=== PATIENT | female | born 2000 | race Hispanic/Latino ===

== ENCOUNTER 2020-04-25 22:33 | Observation (INO) | payer BC ==
[~2020-04-25] VITALS: Ht 172.7 cm; Wt 104.8 kg
[2020-04-25] MEDS ORDERED: LACTATED RINGERS 1000ML IV PRN (22:45)
[2020-04-25 23:09] LABS: APPEARANCE,URINE Clear (CLEAR); BILIRUBIN,URINE Negative (NEGATIVE); COLOR,URINE Yellow (YELLOW); GLUCOSE, URINE (UA) Negative (NEGATIVE); KETONES,URINE Negative (NEGATIVE); LEUKOCYTE ESTERASE ,URINE Negative (NEGATIVE); NITRATE,URINE Negative (NEGATIVE); OCCULT BLOOD,URINE Negative (NEGATIVE); PH,URINE 7.5 (5.0-8.0); PROTEIN,URINE Negative (NEGATIVE); UROBILINOGEN,URINE 0.2 mg/dL (0.2-1.0)
[2020-04-25 23:15] LABS: AMPHET/METH SCREEN,URINE NEGATIVE (NEGATIVE); BARBITURATE SCREEN, URINE NEGATIVE (NEGATIVE); BENZODIAZEPINES SCREEN,URINE NEGATIVE (NEGATIVE); CANNABINOID SCREEN,URINE NEGATIVE (NEGATIVE); COCAINE SCREEN,URINE NEGATIVE (NEGATIVE); OPIATE SCREEN,URINE NEGATIVE (NEGATIVE); PHENCYCLIDINE SCREEN,URINE NEGATIVE (NEGATIVE)
[2020-04-25 23:24] VITALS: BP 129/82
[2020-04-25] MEDS ORDERED: PREN1TAB80 PO (23:38)
== END 2020-04-26 | disposition home or self-care (01) ==
LOC: EDH 22:33 → LDH 22:34
DX: O36.8130 Decreased fetal movements, third trimester, not applicable or unspecified (principal); R10.30 Lower abdominal pain, unspecified; Z3A.30 30 weeks gestation of pregnancy
CPT/HCPCS: 80305; 81003; 99284; G0378

== ENCOUNTER 2020-06-30 01:34 | Inpatient (IN) | payer BC ==
[~2020-06-30] VITALS: Ht 172.7 cm; Wt 106.1 kg
[~2020-06-30 01:34] MED LIST: PREN1TAB80 PO
[2020-06-30 02:31] LABS: APPEARANCE,URINE Clear (CLEAR); BILIRUBIN,URINE Negative (NEGATIVE); COLOR,URINE Yellow (YELLOW); GLUCOSE, URINE (UA) Negative (NEGATIVE); KETONES,URINE 15 mg/dL (NEGATIVE); LEUKOCYTE ESTERASE ,URINE Trace (NEGATIVE); NITRATE,URINE Negative (NEGATIVE); OCCULT BLOOD,URINE Small (NEGATIVE); PROTEIN,URINE Negative (NEGATIVE)
[2020-06-30 02:46] LABS: AMPHET/METH SCREEN,URINE NEGATIVE (NEGATIVE); BARBITURATE SCREEN, URINE NEGATIVE (NEGATIVE); BENZODIAZEPINES SCREEN,URINE NEGATIVE (NEGATIVE); CANNABINOID SCREEN,URINE NEGATIVE (NEGATIVE); COCAINE SCREEN,URINE NEGATIVE (NEGATIVE); OPIATE SCREEN,URINE NEGATIVE (NEGATIVE); PHENCYCLIDINE SCREEN,URINE NEGATIVE (NEGATIVE)
[2020-06-30 02:48] VITALS: BP 129/73
[2020-06-30 03:00] LABS: BACTERIA,URINE Few /HPF (None Seen); MUCUS,URINE Moderate LPF (None Seen); SQUAMOUS EPITHELIAL CELL,UR Moderate /HPF (0-2)
[2020-06-30] MEDS ORDERED: PREN-196 PO (03:03)
[2020-06-30] MEDS ORDERED: LACTATED RINGERS 1000ML 1,000 ML IV PRN (03:05)
[2020-06-30] MEDS ORDERED: ACETAMINOPHEN EXTRA STRENGTH 500 MG TABLET ONE (03:09)
[2020-06-30] MEDS ORDERED: LACTATED RINGERS 500 ML 500 ML IV PRN (03:15)
[2020-06-30] MEDS ORDERED: ACETAMINOPHEN EXTRA STRENGTH 500 MG TABLET PO PRN (03:15)
[2020-06-30] MEDS ORDERED: ROPIVACAINE 0.2% 100ML VIAL 100 ML EP PRN (03:15)
[2020-06-30] MEDS ORDERED: LACTATED RINGERS 1000ML IV PRN (03:15)
[2020-06-30] MEDS ORDERED: EPHEDRINE SULFATE 50 MG/ML AMPULE IVP PRN (03:15)
[2020-06-30] MEDS ORDERED: NALOXONE HCL 0.4 MG/1 ML ML IV PRN (03:15)
[2020-06-30] MEDS ORDERED: BUTORPHANOL TARTRATE 2 MG/ML IVP PRN (03:15)
[2020-06-30] MEDS ORDERED: BUTORPHANOL TARTRATE 2 MG/ML ONE (03:18)
[2020-06-30 03:36] LABS: HEMATOCRIT 30.6 % (36-48); MEAN CORPUSCULAR HEMOGLOBIN 23.6 pg (27.0-33.0); MEAN CORPUSCULAR VOLUME 75.9 fL (80-100); PLATELET COUNT (AUTO) 84 K/uL (130-400); RED BLOOD CELL COUNT(AUTO) 4.03 MIL/uL (4.00-5.50); RED CELL DISTRIBUTION WIDTH 15.1 % (11.0-15.5); WHITE BLOOD COUNT (AUTO) 9.2 K/uL (4.8-10.8)
[2020-06-30] MEDS ORDERED: OXYTOCIN-LR 20 UNITS/1000 ML 1,000 ML IV ONE ×2 (04:39→16:07)
[2020-06-30] MEDS ORDERED: OXYTOCIN 10 USP UNITS/ML 20 UNIT in LACTATED RINGERS 1000ML 1,000 ML IV SCH (08:15)
[2020-06-30] MEDS ORDERED: MEPERIDINE-PF 50 MG/ML SYG ONE (09:11)
[2020-06-30] MEDS ORDERED: LIDOCAINE HCL 1% 20 ML VIAL ONE (09:12)
[2020-06-30] MEDS ORDERED: PROMETHAZINE HCL 25 MG/ML 1ML AMPULE IM PRN (09:15)
[2020-06-30] MEDS ORDERED: MEPERIDINE-PF 50 MG/ML SYG IVP PRN (09:15)
[2020-06-30 09:32] LABS: BASOPHILS % (AUTO) 0.2 % (0.0-5.0); EOSINOPHILS % (AUTO) 0.1 % (0.0-8.0); HEMATOCRIT 28.6 % (36-48); LYMPHOCYTES % (AUTO) 8.8 % (21.0-51.0); MEAN CORPUSCULAR HEMOGLOBIN 23.9 pg (27.0-33.0); MEAN CORPUSCULAR HGB CONC 31.1 g/dL (32.0-36.0); MEAN CORPUSCULAR VOLUME 76.7 fL (80-100); MONOCYTES % (AUTO) 8.1 % (3.0-13.0); NEUTROPHILS % (AUTO) 82.2 % (40.0-77.0); PLATELET COUNT (AUTO) 216 K/uL (130-400); RED BLOOD CELL COUNT(AUTO) 3.73 MIL/uL (4.00-5.50); RED CELL DISTRIBUTION WIDTH 15.1 % (11.0-15.5); WHITE BLOOD COUNT (AUTO) 10.1 K/uL (4.8-10.8)
[2020-06-30 09:41] LABS: INR 0.86 (0.85-1.15); PARTIAL THROMBOPLASTIN TIME 25.1 SEC (26.3-35.5); PROTHROMBIN TIME 9.3 SEC (9.6-11.6)
[2020-06-30 09:45] LABS: ALBUMIN 2.5 g/dL (3.5-5.0); BILIRUBIN,TOTAL 0.4 mg/dL (0.2-1.0); CREATININE 0.6 mg/dL (0.5-1.5); POTASSIUM 3.8 mmol/L (3.5-5.1); TOTAL PROTEIN, SERUM 6.6 g/dL (6.0-8.3); URIC ACID 4.8 mg/dL (2.6-7.2)
[2020-06-30 14:09] LABS: RAPID PLASMA REAGIN NONREACTIVE (NONREACTIVE)
--- NOTE | 2020-06-30 14:45 | NUR ---
SS Referral for Hx of depression and COVID+ SW unable to meet w/pt. face to face, interview by telephone while pt. is in L&D. Pt. reports that she is single, resides at home with her parents and that this is her first . 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 Pt. 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 Pt. denies any signs/symptoms of depression, any thoughts of harm to self or others. Pt. admits to self-cutting as a 12y, denies any intervention from mental health community and reports that she stopped cutting on her own. Pt. denies any history of suicidal attempts, denies any history of anxiety. Pt. denies any use of etoh, tobacco or illicit substances. Pt. reports a strong support system among boyfriend, her parents and boyfriend parents. Pt. reports that she is aware that baby will be tested for COVID and if baby is negative, she is considering boyfriend's mother/Susan Tiffanieperez for care of . Carseat, baby clothes, diapers, etc reportedly in place. All utilities reportedly connected in the home and boyfriend will provide transportation home. Pt. has private insurance under parent and plans to enroll in WIC. SW discussed PPD with pt. who verbalized an awareness and understanding of how and when to seek assistance if needed. Pt. voiced no concerns or SS needs at this time. Addendum: 06/30/20 at 1518 by PORTILLO HART Amended: Links added.
[2020-06-30] MEDS ORDERED: METHYLERGONOVINE MALEATE 0.2 MG/1 ML ML ONE (16:08)
[2020-06-30] MEDS ORDERED: ACETAMINOPHEN-CODEINE 300/30MG TAB PO PRN (17:15)
[2020-06-30] MEDS ORDERED: OXYTOCIN-LR 20 UNITS/1000 ML 1,000 ML IV SCH (17:15)
[2020-06-30] MEDS ORDERED: WITCH HAZEL 1 PAD TP PRN (17:15)
[2020-06-30] MEDS ORDERED: DIPH,PERTUSS(ACELL),TET VAC/PF 0.5 ML VIAL IM PRN (17:15)
[2020-06-30] MEDS ORDERED: IBUPROFEN 600 MG TABLET PO PRN (17:15)
[2020-06-30] MEDS ORDERED: BENZOCAINE/LANOLIN/ALOE VERA 60 ML AEROSOL TP PRN (17:15)
[2020-06-30] MEDS ORDERED: MEASLES/MUMPS/RUBELLA VACCINE, LIVE 0.5 ML/VIAL SQ PRN (17:15)
[2020-06-30] MEDS ORDERED: ACETAMINOPHEN 325 MG TAB PO PRN (17:15)
[2020-06-30] MEDS ORDERED: AZITHROMYCIN 250 MG TABLET PO SCH (17:15)
[2020-06-30] MEDS ORDERED: LANOLIN 30GM OINTMENT TP PRN (17:15)
[2020-06-30] MEDS ORDERED: IBUPROFEN 600 MG TABLET ONE (17:19)
[2020-06-30] MEDS ORDERED: AZITHROMYCIN 250 MG TABLET PO ONE (17:19)
[2020-06-30 19:40] VITALS: BP 109/72
[2020-06-30] MEDS: DOCUSATE SODIUM 100 MG CAP PO SCH (19:51)
[2020-06-30 23:37] VITALS: BP 116/72
[2020-07-01 03:12] VITALS: BP 127/76
--- NOTE | 2020-07-01 05:40 | NUR ---
NOT ABLE TO DRAW PT'S LAB FOR CBC,LAB. NOTIFIED. SITZ BATH EXPLAINED TO PT, WHO GOT OUT OF BED TO DO HER SITZ RIGHT NOW. INST ON THE USE OF DERMO LANOLIN GIVEN SINCE PT SAID ANDRES AND LISSA, PT VERBALIZED UNDERSTANDING. LANOLIN GIVEN PT SAID SHE PLANS ON , NURSERY NOTIFIED.
[2020-07-01 06:08] LABS: HEMATOCRIT 27.9 % (36-48); MEAN CORPUSCULAR HEMOGLOBIN 23.6 pg (27.0-33.0); MEAN CORPUSCULAR HGB CONC 30.5 g/dL (32.0-36.0); MEAN CORPUSCULAR VOLUME 77.5 fL (80-100); RED BLOOD CELL COUNT(AUTO) 3.6 MIL/uL (4.00-5.50); RED CELL DISTRIBUTION WIDTH 15.4 % (11.0-15.5); WHITE BLOOD COUNT (AUTO) 9.9 K/uL (4.8-10.8)
[2020-07-01 06:11] LABS: HEPATITIS Bs ANTIGEN SCREEN P Negative (Negative)
[2020-07-01 08:30] VITALS: BP 123/82
[2020-07-01] MEDS: DOCUSATE SODIUM 100 MG CAP PO SCH (08:30)
[2020-07-01] MEDS ORDERED: AZITHROMYCIN 250 MG TABLET PO SCH (09:00)
--- NOTE | 2020-07-01 10:50 | NUR ---
pt is discharged, verbal and written discharge instructions given, pls refer to [facility]. informed to call the MD office for follow up appointment. prescription given. informed to call the doctor for further concerns. pt voiced understanding to all things discussed. Addendum: 07/01/20 at 1224 by NAVEEN MISTRY RN Amended: Links added.
--- NOTE | 2020-07-01 11:10 | NUR ---
pt is dismissed in stable condition. brought to private car via wheelchair.
--- NOTE | 2020-07-01 12:08 | NUR ---
cm note spoke to pt and resides at home with parents and with boyfriend, this is her first baby, has had hx of depression as a child, but has not had any signs or symptoms of depression since then, has had a hx of THC use in the past, but it was prior to her and does not use any thc or any drugs and does not plan to use any. is familiar with resources available for depression, and educated her to call md if at any point these signs recur. pt verbalizes understanding. that has good strong family support at home with Her boyfriend, and her parents. no dc needs. updated nursery nurse nurse antonia.
== END 2020-07-01 11:10 | disposition home or self-care (01) | DRG 805 ==
LOC: EDH 01:34 → OBSVTOIN 01:35 → LDH 01:35 → WSH 18:52
PROVIDERS: ADMIT Specialist; ATTEND Specialist
PROC: 10E0XZZ Delivery of Products of Conception, External Approach (ICD-10-PCS; principal; 2020-06-30)
PROC: 0W8NXZZ Division of Female Perineum, External Approach (ICD-10-PCS; 2020-06-30)
PROC: 10907ZC Drainage of Amniotic Fluid, Therapeutic from Products of Conception, Via Natural or Artificial Opening (ICD-10-PCS; 2020-06-30)
PROC: 3E0234Z Introduction of Serum, Toxoid and Vaccine into Muscle, Percutaneous Approach (ICD-10-PCS; 2020-06-30)
PROC: 3E0134Z Introduction of Serum, Toxoid and Vaccine into Subcutaneous Tissue, Percutaneous Approach (ICD-10-PCS; 2020-06-30)
PROC: 3E0R3BZ Introduction of Anesthetic Agent into Spinal Canal, Percutaneous Approach (ICD-10-PCS; 2020-06-30)
PROC: 00HU33Z Insertion of Infusion Device into Spinal Canal, Percutaneous Approach (ICD-10-PCS; 2020-06-30)
DX: O98.52 Other viral diseases complicating childbirth (principal); U07.1 COVID-19; Z37.0 Single live birth; Z23 Encounter for immunization; Z3A.39 39 weeks gestation of pregnancy
CPT/HCPCS: 36415; 80053; 80305; 81001; 84550; 85025; 85027; 85384; 85610; 85730; 86592; 86701; 86850; 86900; 86901; 87340; 87390; 87426; 90715; A4314; A4606; G0378; J0595; J2175; J2210; J2590; J2795; J7120

== ENCOUNTER → 2020-07-02 | Outpatient (CLI) | payer BC ==
[~2020-07-02] MED LIST changes: +PREN-196 PO
== END | disposition home or self-care (01) ==
LOC: LAB 13:44
PROVIDERS: ATTEND Specialist
DX: U07.1 COVID-19 (principal)
CPT/HCPCS: C9803; U0003

== ENCOUNTER 2021-11-21 01:25 | Emergency (ER) | payer BC, MEDICAID ==
[~2021-11-21] VITALS: Ht 172.7 cm; Wt 88.5 kg
[2021-11-21] MEDS ORDERED: ACETAMINOPHEN 500 MG TABLET PO ONE (05:30)
[2021-11-21 05:35] VITALS: BP 128/74
== END 2021-11-21 05:39 | disposition home or self-care (01) ==
LOC: EDH 01:25
DX: S46.912A Strain of unspecified muscle, fascia and tendon at shoulder and upper arm level, left arm, initial encounter (principal); X58.XXXA Exposure to other specified factors, initial encounter; Y93.89 Activity, other specified; Y92.89 Other specified places as the place of occurrence of the external cause; Y99.8 Other external cause status
CPT/HCPCS: 73030